=== PATIENT | male | born 1940 | race Caucasian/White ===

== ENCOUNTER 2019-05-20 10:44 | Emergency (ER) | payer MEDICARE ==
[~2019-05-20] VITALS: Ht 175.3 cm; Wt 76.4 kg
[~2019-05-20 10:44] MED LIST: AMIO200T40 PO; ASPI-1264 PO; ATOR40TA7 PO; BISA10SU22 RC; DOCU-28 PO; ENOX30SY10 SQ; FURO10DI IVP; IRON150C13 PO; MAGN800O PO; METO50TA16 PO; MULT-685 PO; NA P133E4 RC; OMEP20TA5 PO; PIPE3.3712 IV; VALS40TA2 PO; VANC1VIA21 IV; VENL-191 PO
[2019-05-20 12:16] LABS: BASOPHILS % (AUTO) 0.5 % (0-1); EOSINOPHILS # (AUTO) 0.4 X10'3 (0-0.9); EOSINOPHILS % (AUTO) 5.4 % (0-6); HEMATOCRIT 34.7 % (42.0-52.0); HEMOGLOBIN 11.4 g/dl (14.0-17.9); LYMPHOCYTES # (AUTO) 1.5 X10'3 (1.1-4.8); LYMPHOCYTES % (AUTO) 21.7 % (21-51); MEAN CORPUSCULAR HEMOGLOBIN 33.5 PG (27.0-31.0); MEAN CORPUSCULAR HGB CONC 32.7 g/dL (33.0-36.5); MEAN CORPUSCULAR VOLUME 102.2 FL (78-98); MEAN PLATELET VOLUME 9.6 FL (7.4-10.4); MONOCYTES # (AUTO) 0.7 X10'3 (0-0.9); NEUTROPHILS # (AUTO) 4.4 X10'3 (1.8-7.7); NEUTROPHILS % (AUTO) 62.4 % (42-75); PLATELET COUNT 165 X10'3 (140-440); RED BLOOD COUNT 3.39 X10'6 (4.70-6.10); RED CELL DISTRIBUTION WIDTH 13.2 % (11.5-14.5); WHITE BLOOD COUNT 7.1 X10'3 (4.5-11.0)
[2019-05-20 12:18] LABS: ANION GAP 3 (8-16); BLOOD UREA NITROGEN 36 MG/DL (7-18); BUN/CREATININE RATIO 26.5 (5.4-32.0); CHLORIDE 103 MMOL/L (99-107); CREATININE 1.36 MG/DL (0.60-1.10); GLUCOSE 91 MG/DL (70-104); SODIUM 142 MMOL/L (135-145); TOTAL CARBON DIOXIDE 35.8 MMOL/L (24-32)
[2019-05-20 12:19] LABS: ALANINE AMINOTRANSFERASE 21 U/L (12-78); ALBUMIN 3.4 G/DL (3.4-5.0); ALBUMIN/GLOBULIN RATIO 0.9 (1.1-1.5); ALKALINE PHOSPHATASE 59 IU/L (46-116); ASPARTATE AMINO TRANSFERASE 8 U/L (10-37); BILIRUBIN,TOTAL 0.3 MG/DL (0.1-1.0); CALCIUM 8.7 MG/DL (8.5-10.1); eGFR 51 ML/MIN
[2019-05-20 12:22] LABS: D-DIMER 0.88 MG/L FEU (0-0.50)
[2019-05-20] MEDS ORDERED: ipratropium/albuterol 3ml nebule NEB ONE (12:55)
[2019-05-20] MEDS ORDERED: predniSONE 20 mg tablet PO ONE (13:35)
[2019-05-20] MEDS ORDERED: PRED20TA PO (13:54)
[2019-05-20 13:56] LABS: ABG BASE EXCESS 4.3 mmol/L (-2.0-3.0); ABG HCO3 30.1 mmol/L (22.0-26.0); ABG OXYGEN SATURATION 97.3 % (95-98); ABG PCO2 (T) 50.1 mmHg (35.0-48.0); ABG PH (T) 7.396 (7.350-7.450); ABG PO2 (T) 95.6 mmHg (83-108); ALLEN'S TEST Positive; FCOHb 0.4 % (0.5-1.5); FLOW 2 L/min; FMetHb 0.3 % (0.3-1.12); FO2Hb 96.6 % (94-100); TOTAL HEMOGLOBIN 12.4 G/dl (14.0-18.0)
[2019-05-20] MEDS ORDERED: iohexol 350MG/ML 100ml bottle IV ONE (14:29)
[2019-05-20] MEDS ORDERED: ALBU8.5H8 INH (15:03)
[2019-05-20 15:54] VITALS: BP 134/60
== END 2019-05-20 15:57 | disposition home or self-care (01) ==
LOC: ER 10:44
DX: J40 Bronchitis, not specified as acute or chronic (principal); R06.89 Other abnormalities of breathing; I25.10 Atherosclerotic heart disease of native coronary artery without angina pectoris; I25.2 Old myocardial infarction; Z95.1 Presence of aortocoronary bypass graft; Z98.890 Other specified postprocedural states; Z88.5 Allergy status to narcotic agent; Z88.6 Allergy status to analgesic agent; Z88.8 Allergy status to other drugs, medicaments and biological substances; Z79.82 Long term (current) use of aspirin; Z79.2 Long term (current) use of antibiotics; Z79.899 Other long term (current) drug therapy
CPT/HCPCS: 36415; 36600; 71045; 71275; 80053; 82803; 83735; 83880; 84484; 85018; 85025; 85379; 93005; 94640; 94760; 99284; J7512; Q9967

== ENCOUNTER 2019-08-10 08:31 | Outpatient (CLI) | payer MEDICARE ==
[~2019-08-10] VITALS: Ht 198.1 cm; Wt 164.2 kg
[~2019-08-10 08:31] MED LIST changes: +ALBU8.5H8 INH; -AMIO200T40 PO; +AMIO200T61 PO
[2019-08-10 09:10] LABS: TOTAL HEMOGLOBIN 12.6 G/dl (14.0-17.9)
[2019-08-10] MEDS ORDERED: albuterol 2.5 MG/3 ML nebule ONE (09:46)
[2019-08-10] MEDS ORDERED: albuterol 2.5 MG/3 ML nebule NEB ONE (10:05)
== END 2019-08-10 23:59 | disposition home or self-care (01) ==
LOC: RT 08:31
PROVIDERS: ATTEND Internal Medicine Pulmonary Disease
DX: R94.2 Abnormal results of pulmonary function studies (principal); R06.02 Shortness of breath
CPT/HCPCS: 85018; 94060; 94727; 94729; 94760